=== PATIENT | male | born 1945 | race Two or more races ===

== ENCOUNTER → 2017-08-13 | Outpatient (CLI) | payer MEDICARE | LOC: CVU 11:14 | PROVIDERS: ATTEND Internal Medicine Cardiovascular Disease | DX: I08.3 Combined rheumatic disorders of mitral, aortic and tricuspid valves (principal); I48.91 Unspecified atrial fibrillation; I10 Essential (primary) hypertension; Z95.2 Presence of prosthetic heart valve | CPT/HCPCS: 93306 ==

== ENCOUNTER → 2017-08-27 | Outpatient (CLI) | payer MEDICARE ==
[~2017-08-27] MED LIST: REGADENOSON 0.4 MG/5 ML SYRINGE ONE
== END ==
LOC: CFH 07:53
PROVIDERS: ATTEND Internal Medicine Cardiovascular Disease
DX: Z02.9 Encounter for administrative examinations, unspecified (principal)
CPT/HCPCS: J2785

== ENCOUNTER → 2017-08-29 | Outpatient (CLI) | payer MEDICARE | END | disposition home or self-care (01) | LOC: CFH 08:49 | PROVIDERS: ATTEND Internal Medicine Cardiovascular Disease | DX: R06.02 Shortness of breath (principal) | CPT/HCPCS: 78452; 93017; A9502; J2785 ==

== ENCOUNTER 2017-09-24 09:08 | Day surgery (SDC) | payer MEDICARE ==
[~2017-09-24] VITALS: Ht 165.1 cm; Wt 92.0 kg
[2017-09-24] MEDS ORDERED: POTA10TA PO (09:48)
[2017-09-24] MEDS ORDERED: METF500T5 PO (09:48)
[2017-09-24] MEDS ORDERED: LISI5TAB7 PO (09:48)
[2017-09-24] MEDS ORDERED: HYDR25TA6 PO (09:48)
[2017-09-24] MEDS ORDERED: ASPI-647 PO (09:48)
[2017-09-24] MEDS ORDERED: ATOR20TA9 PO (09:48)
[2017-09-24] MEDS ORDERED: CARV12.543 PO (09:48)
[2017-09-24] MEDS ORDERED: APIX5TAB PO (09:48)
[2017-09-24] MEDS ORDERED: FURO-93 PO (09:48)
[2017-09-24] MEDS ORDERED: GLIM4TAB2 PO (09:48)
[2017-09-24 10:16] LABS: ALANINE AMINOTRANSFERASE 56 U/L (12-78); ALBUMIN 3.4 g/dL (3.4-5.0); ANION GAP 5 mmol/L (5-15); CALCIUM 8.6 mg/dL (8.5-10.1); CHLORIDE 106 mmol/L (98-107); CREATININE 0.81 mg/dL (0.7-1.3)
[2017-09-24 10:19] LABS: ALKALINE PHOSPHATASE 120 U/L (45-117); CHOL/HDL RATIO 2.3; CHOLESTEROL, TOTAL 126 mg/dL (140-239); HDL CHOL % 44 % (26-37); HDL CHOLESTEROL (DIRECT) 55 mg/dL (40-60); LDL CHOLESTEROL,CALCULATED 59 mg/dL (54-169); LDL/HDL RATIO 1.1 (0.5-3.0); TOTAL PROTEIN 7.5 g/dL (6.4-8.2); TRIGLYCERIDES 61 mg/dL (50-200); VLDL CHOLESTEROL 12 mg/dL (0-25)
[2017-09-24 10:38] LABS: HEMOGLOBIN A1C 6.9 % (4.2-6.3)
[2017-09-24] MEDS ORDERED: PROPOFOL 10 MG/ML, 20ML ONE (12:06)
[2017-09-24] MEDS ORDERED: SODIUM CHLORIDE FLUSH 10ML SYR IVF SCH (21:00)
== END 2017-09-24 13:15 ==
LOC: CACL 09:08
PROVIDERS: ATTEND Internal Medicine Cardiovascular Disease
DX: I48.91 Unspecified atrial fibrillation (principal); I10 Essential (primary) hypertension; E78.00 Pure hypercholesterolemia, unspecified; E11.9 Type 2 diabetes mellitus without complications; E66.01 Morbid (severe) obesity due to excess calories; F41.9 Anxiety disorder, unspecified; Z79.82 Long term (current) use of aspirin; Z87.891 Personal history of nicotine dependence; Z95.2 Presence of prosthetic heart valve
CPT/HCPCS: 36415; 80053; 80061; 83036; 92960; 93005; J2704

== ENCOUNTER → 2018-09-24 | Outpatient (CLI) | payer MEDICARE ==
[~2018-09-24] MED LIST changes: +APIX5TAB PO; +ASPI-647 PO; +ATOR20TA37 PO; +CARV12.543 PO; +FURO-93 PO; +GLIM4TAB2 PO; +HYDR25TA6 PO; +LISI5TAB7 PO; +METF500T17 PO; +POTA10TA PO; -REGADENOSON 0.4 MG/5 ML SYRINGE ONE
== END | disposition home or self-care (01) ==
LOC: CVU 06:54
PROVIDERS: ATTEND Internal Medicine Cardiovascular Disease
DX: R60.0 Localized edema (principal); I10 Essential (primary) hypertension; E78.5 Hyperlipidemia, unspecified; Z87.891 Personal history of nicotine dependence
CPT/HCPCS: 93922

== ENCOUNTER 2018-11-02 09:40 | Day surgery (SDC) | payer MEDICARE | END 2018-11-02 10:30 | disposition home or self-care (01) | LOC: CACL 09:40 | PROVIDERS: ATTEND Internal Medicine Cardiovascular Disease | DX: I48.91 Unspecified atrial fibrillation (principal); Z53.8 Procedure and treatment not carried out for other reasons; I10 Essential (primary) hypertension; E11.65 Type 2 diabetes mellitus with hyperglycemia; E78.5 Hyperlipidemia, unspecified; I73.9 Peripheral vascular disease, unspecified; E66.01 Morbid (severe) obesity due to excess calories; Z68.35 Body mass index [BMI] 35.0-35.9, adult; Z79.84 Long term (current) use of oral hypoglycemic drugs; Z79.82 Long term (current) use of aspirin; Z79.01 Long term (current) use of anticoagulants; Z79.899 Other long term (current) drug therapy; Z87.891 Personal history of nicotine dependence; Z95.2 Presence of prosthetic heart valve | CPT/HCPCS: 36415; 80048; 85610 ==

== ENCOUNTER 2019-04-03 10:14 | Emergency (ER) | payer MEDICARE ==
[~2019-04-03 10:14] MED LIST changes: -GLIM4TAB2 PO; +GLIM4TAB4 PO; +SOTA80TA18 PO
== END 2019-04-03 10:21 ==
LOC: ED 10:17
DX: R68.89 Other general symptoms and signs (principal); Z53.21 Procedure and treatment not carried out due to patient leaving prior to being seen by health care provider